=== PATIENT | female | born 1950 | race Caucasian/White ===

== ENCOUNTER 2024-12-05 08:46 | Day surgery (SDC) | payer MEDICARE ==
[2024-12-02 11:54] VITALS: BMI 25.7
[2024-12-05 09:32] LABS: #Basophils 0.06 10x3/uL (0.0-0.2); #Eosinophils 0.18 10x3/uL (0.0-0.5); #Monocytes 0.44 10x3/uL (0.0-1.1); #Neutrophils 3.08 10x3/uL (1.5-8.4); %Basophils 1.1 % (0.0-2.0); %Eosinophils 3.4 % (0.0-6.0); %Lymphocytes 28.4 % (18.0-47.0); %Monocytes 8.3 % (0.0-10.0); %Neutrophils 58.4 % (40.0-75.0); Hematocrit 48.6 % (34.9-44.5); Hemoglobin 15.8 g/dL (12.0-15.5); Mean Corpuscular Hemoglobin 30.5 pg (27.0-33.0); Mean Corpuscular Volume 93.8 fL (81.6-98.3); Platelet Count 266 10x3/uL (150-450); Red Blood Cell (RBC) Count 5.18 10x6/uL (3.90-5.03); White Blood Cell (WBC) Count 5.28 10x3/uL (3.5-10.5)
[2024-12-05 09:47] LABS: Anion Gap 15 mmol/L (10-20); BUN (Urea Nitrogen) 10 mg/dL (9.8-20.1); Calc. Creatinine Clearance 63 mL/min (70-130); Calcium 9.7 mg/dL (7.8-10.44); Carbon Dioxide 27 mmol/L (23-31); Chloride 103 mmol/L (98-107); Glucose 93 mg/dL (83-110); Potassium 3.8 mmol/L (3.5-5.1); Sodium 141 mmol/L (136-145)
[2024-12-05] MEDS ORDERED: PROPOFOL 20 ML ONE ×2 (10:09→11:31)
[2024-12-05] MEDS ORDERED: Lidocaine 1% PF 5 ML VIAL ONE (10:10)
[2024-12-05] MEDS ORDERED: CEFAZOLIN 2 GM VIAL ONE (10:49)
[2024-12-05] MEDS ORDERED: Ondansetron PF 4 MG/2 ML Vial ONE (12:01)
== END 2024-12-05 13:25 | disposition home or self-care (01) ==
LOC: CSHSDC 08:46
PROVIDERS: ATTEND Obstetrics & Gynecology
PROC: 0UDB8ZZ Extraction of Endometrium, Via Natural or Artificial Opening Endoscopic (ICD-10-PCS; principal; 2024-12-05)
DX: N95.0 Postmenopausal bleeding (principal); N88.2 Stricture and stenosis of cervix uteri
CPT/HCPCS: 58558; 80048; 85025; 86900; 86901; J1100; J2405; J2704; J3010; 36415; 88305